=== PATIENT | female | born 1970 | race African-American/Black ===

== ENCOUNTER 2022-06-23 13:47 | Emergency (ER) | payer OTHER ==
[2022-06-23 14:11] VITALS: RESP 20; TEMP 99.5; BMI 28.3
[2022-06-23] MEDS ORDERED: ACETAMINOPHEN 325 MG TABLET (FP) PO ONE (14:48)
[2022-06-23] MEDS ORDERED: ONDANSETRON 4 MG TABLET PO ONE (14:49)
[2022-06-23] MEDS ORDERED: ONDANSETRON 4 MG/2 ML VIAL IVPUSH ONE (14:58)
[2022-06-23] MEDS ORDERED: LACTATED RINGERS SOLUTION 1000 ML INFUS.BAG IV ONE (14:58)
[2022-06-23] MEDS ORDERED: ACETAMINOPHEN 325 MG TABLET (FP) ONE (15:15)
[2022-06-23] MEDS ORDERED: ONDANSETRON 4 MG/2 ML VIAL ONE (15:15)
[2022-06-23 15:59] LABS: HEMATOCRIT 41.6 % (32.4-45.2); HEMOGLOBIN 13.1 GM/dL (10.7-15.3); MCH 27.2 pg (25.7-33.7); MCHC 31.4 g/dl (32.0-36.0); MEAN CELL VOLUME 86.4 fl (80-96); MEAN PLT VOLUME 7.8 fl (7.5-11.1); PLATELET COUNT 254 10^3/uL (134-434); RBC 4.82 M/mm3 (3.60-5.2); RDW 14.8 % (11.6-15.6); WHITE BLOOD COUNT 5.3 K/mm3 (4.0-10.0)
[2022-06-23 16:41] LABS: BLOOD UREA NITROGEN 12.7 mg/dL (7-18); CALCIUM 9.2 mg/dL (8.5-10.1)
[2022-06-23 16:42] LABS: ALBUMIN 3.6 g/dl (3.4-5.0)
[2022-06-23 16:45] LABS: CREATININE 1.1 mg/dL (0.55-1.3)
[2022-06-23 16:46] LABS: BILIRUBIN,TOTAL 0.3 mg/dL (0.2-1); TOT PROT 7.7 g/dl (6.4-8.2)
[2022-06-23 17:34] LABS: ANISOCYTOSIS 0; MACROCYTOSIS 0
[2022-06-23 18:24] VITALS: BP 159/75; PULSE 88
== END 2022-06-23 18:24 | disposition home or self-care (01) ==
LOC: JER 13:47
PROC: 3E033GC Introduction of Other Therapeutic Substance into Peripheral Vein, Percutaneous Approach (ICD-10-PCS; principal; 2022-06-23)
DX: U07.1 COVID-19 (principal)
CPT/HCPCS: 36415; 80053; 85025; 93005; 93010; 99284-25